=== PATIENT | male | born 1970 ===

== ENCOUNTER 2020-04-07 08:16 | Outpatient (CLI) | payer OTHER, SELFPAY | END 2020-04-07 08:17 | LOC: ANHCOVIDVC 08:16 | PROVIDERS: PCP Internal Medicine; Visit Provider Internal Medicine | DX: Z23 Encounter for immunization (principal) | CPT/HCPCS: 0001A; 91300 ==

== ENCOUNTER 2020-04-28 08:12 | Outpatient (CLI) | payer OTHER, SELFPAY | END 2020-04-28 08:13 | disposition home or self-care (01) | LOC: ANHCOVIDVC 08:12 | PROVIDERS: PCP Internal Medicine | DX: Z23 Encounter for immunization (principal) | CPT/HCPCS: 0002A; 91300 ==